=== PATIENT | male | born 1970 | race Caucasian/White ===

== ENCOUNTER → 2017-08-28 | Outpatient (CLI) | payer OTHER ==
--- NOTE | 2017-08-28 23:39 | MR ---
EXAMINATION TYPE: MR knee RT wo con DATE OF EXAM: 08/28/2017 COMPARISON: NONE HISTORY: Rt knee pain/injury 2 years ago, eval for ACL/meniscus tear TECHNIQUE: Multiplanar, multisequence imaging of the right knee is performed without IV contrast. FINDINGS: There is some metal artifact related to anterior cruciate ligament reconstructive surgery. There is l inear mixed signal defect in the proximal tibia and distal femur. There is a very thin anterior cruci ate ligament. There is at least a partial tear of this ligament. The posterior cruciate ligament appe ars intact. There is mild knee joint effusion. There is thinning and increased signal in the anterior horn of the lateral meniscus. There is increased signal within the posterior horn lateral meniscus. There is increased signal in the posterior horn medial meniscus that extends to the inferior surface. There is subchondral increased signal in the medial tibial condyle. There is spurring of the anterio r distal femur. The collateral ligaments appear intact. IMPRESSION: Knee joint effusion. Osteoarthritic changes with subchondral edema and cystic change in the medial ti bial condyle. There is at least a partial tear of the anterior cruciate ligament with previous recons tructive surgery. Multiple tears of the menisci as described above. This involves the inferior aspect medial meniscus, anterior and posterior horns of the lateral meniscus. No fracture seen.
== END | disposition home or self-care (01) ==
LOC: RADMRIMAIN 18:41
PROVIDERS: ATTEND Orthopaedic Surgery
DX: S83.511A Sprain of anterior cruciate ligament of right knee, initial encounter (principal); M17.11 Unilateral primary osteoarthritis, right knee; S83.281A Other tear of lateral meniscus, current injury, right knee, initial encounter; S83.241A Other tear of medial meniscus, current injury, right knee, initial encounter

== ENCOUNTER 2022-02-16 22:31 | Emergency (ER) | payer OTHER ==
[2022-02-16 22:35] VITALS: BP 147/86; PULSE 89; RESP 18; TEMP 98.3
[2022-02-16] MEDS ORDERED: KETOROLAC 15 MG/ML 1 ML VIAL IM STA (22:54)
--- NOTE | 2022-02-16 22:55 | XR ---
EXAMINATION TYPE: XR shoulder complete RT DATE OF EXAM: 02/16/2022 COMPARISON: NONE HISTORY: Shoulder pain TECHNIQUE: Review FINDINGS: There is no fracture nor dislocation. Glenohumeral joint is intact. No pathologic calcifica tion. IMPRESSION: Negative right shoulder exam. No fracture
--- NOTE | 2022-02-16 23:08 | ED ---
Upper Extremity HPI - General Chief Complaint: Extremity Injury, Upper Stated Complaint: Right shoulder pain,Fall Time Seen by Provider: 02/16/22 22:37 Source: patient Mode of arrival: ambulatory Limitations: no limitations - History of Present Illness Initial Comments: Patient is a 52-year-old male who presents to the emergency department with a chief complaint of right shoulder pain. Patient states he tripped over his dog and pushed his right arm against the wall to stop himself from falling which caused right shoulder pain that radiates down the upper arm. Patient heard a pop which he thinks came from his shoulder. Denies numbness and tingling. Took his 's Flexeril for pain just prior to arrival. - Related Data Previous Rx's Medication Instructions Recorded Cyclobenzaprine [Flexeril] 10 mg PO HS PRN #7 tab 02/16/22 Ibuprofen [Motrin] 800 mg PO Q6HR PRN #30 tab 02/16/22 Allergies Allergy/AdvReac Type Severity Reaction Status Date / Time No Known Allergies Allergy Verified 02/16/22 22:34 Review of Systems ROS Statement: Those systems with pertinent positive or pertinent negative responses have been documented in the HPI. ROS Other: All systems not noted in ROS Statement are negative. Past Medical History Past Medical History: Diabetes Mellitus, Hyperlipidemia, Hypertension Additional Past Medical History / Comment(s): chronic left knee pain History of Any Multi-Drug Resistant Organisms: None Reported Past Surgical History: Joint Replacement Additional Past Surgical History / Comment(s): left knee Past Psychological History: No Psychological Hx Reported Smoking Status: Current every day smoker Past Alcohol Use History: None Reported Past Drug Use History: None Reported General Exam Limitations: no limitations General appearance: alert, in no apparent distress Eye exam: Present: normal appearance, PERRL, EOMI. Absent: scleral icterus, conjunctival injection, periorbital swelling Respiratory exam: Present: normal lung sounds bilaterally. Absent: respiratory distress, wheezes, rales, rhonchi, stridor Cardiovascular Exam: Present: regular rate, normal rhythm, normal heart sounds. Absent: systolic murmur, diastolic murmur, rubs, gallop, clicks Right Shoulder Exam: Present: normal inspection, tenderness (at AC joint ). Absent: full ROM (flexion limited due to pain ), swelling, abrasion, laceration, ecchymosis, deformity, crepitus, dislocation Upper Arm exam: Present: normal inspection, tenderness (Proximal biceps tendon region without swelling, ecchymosis, or change in contour). Absent: swelling Elbow exam: Present: normal inspection, full ROM. Absent: tenderness, swelling, abrasion Vascular: Present: normal capillary refill Back exam: Present: normal inspection, full ROM. Absent: tenderness Neurological exam: Present: alert, oriented X3, CN II-XII intact Psychiatric exam: Present: normal affect, normal mood Course Vital Signs 02/16/22 22:32 Temperature 98.3 F Pulse Rate 89 Respiratory 18 Rate Blood Pressure 147/86 O2 Sat by Pulse 95 Oximetry Medical Decision Making - Medical Decision Making This is a 52-year-old male presenting with right shoulder injury. There is tenderness at the right AC joint without obvious deformity. There is pain in the proximal biceps tendon region without swelling, ecchymosis, or change in contour. Flexion and abduction of the right shoulder is limited due to pain. Neurovascularly intact. Right shoulder x-ray is negative for acute process. Based on physical exam there is suspicion for biceps tendon injury. Patient placed in sling. Given Toradol with some relief. He will be referred to cardiology clinical nurse specialist for further evaluation and management. Will send him home with Motrin 800. Dr. Jiang is my attending. Disposition Clinical Impression: Right shoulder pain, Right shoulder injury Disposition: HOME SELF-CARE Condition: Good Instructions (If sedation given, give patient instructions): Tendon Rupture (ED), Shoulder Pain (ED) Additional Instructions: Please take medication as directed. Do not drink alcohol or operate machinery while taking Flexeril as it can make you sleepu. Apply ice 4 times a day, 20 minutes each session, especially for the next 48 hours. Follow-up with cardiology clinical nurse specialist in 1-2 days. Keep sling on his orthopedic evaluation. Return to the emergency department experience new, concerning, or worsening symptoms. Prescriptions: Cyclobenzaprine [Flexeril] 10 mg PO HS PRN #7 tab PRN Reason: Muscle Spasm Ibuprofen [Motrin] 800 mg PO Q6HR PRN #30 tab PRN Reason: Pain Is patient prescribed a controlled substance at d/c from ED?: No Referrals: [facility] [Primary Care Provider] - 1-2 days Cornelius Colorado DO [Doctor of Osteopathic Medicine] - 1-2 days Time of Disposition: 23:09
== END 2022-02-17 00:06 | disposition home or self-care (01) ==
LOC: EC 22:31
DX: S49.91XA Unspecified injury of right shoulder and upper arm, initial encounter (principal); E11.9 Type 2 diabetes mellitus without complications; E78.5 Hyperlipidemia, unspecified; I10 Essential (primary) hypertension; F17.200 Nicotine dependence, unspecified, uncomplicated; Z79.899 Other long term (current) drug therapy; W01.0XXA Fall on same level from slipping, tripping and stumbling without subsequent striking against object, initial encounter
CPT/HCPCS: 73030; 99284; 96372; J1885

== ENCOUNTER 2022-05-05 07:41 | Day surgery (SDC) | payer OTHER ==
[2022-05-02 10:47] VITALS: BMI 33.9
[~2022-05-05 07:41] MED LIST: Pre Op ABX Message 1 EACH MISC MISCELLANE ONE
[2022-05-05] MEDS ORDERED: HYDROmorphone 0.5 MG/0.5 ML SYRINGE IVP PRN (08:19)
[2022-05-05] MEDS ORDERED: ONDANSETRON 4 MG/2 ML VIAL IVP ONE (08:19)
[2022-05-05] MEDS ORDERED: LACTATED RINGERS 1,000 ML IV SCH (08:19)
[2022-05-05] MEDS ORDERED: LIDOCAINE 1% (10MG/ML) FOR IV START INTRADERMA PRN (08:19)
[2022-05-05 08:39] LABS: Glucose,Whole Blood 191 mg/dL (70-110)
[2022-05-05] MEDS ORDERED: DEXAMETHASONE SOD PHOSPHATE 4 MG/ML 1 ML VIAL IVP ONE (08:41)
[2022-05-05 08:47] LABS: Basophils # (A) 0.1 k/uL (0-0.2); Basophils % (A) 1 %; Eosinophils # (A) 0.2 k/uL (0-0.7); Eosinophils % (A) 3 %; HCT 50.5 % (39.0-53.0); HGB 17.2 gm/dL (13.0-17.5); Lymphocytes # (A) 2.4 k/uL (1.0-4.8); Lymphocytes % (A) 33 %; MCH 29.8 pg (25.0-35.0); MCV 87.7 fL (80.0-100.0); Mean Platelet Volume 7.2; Monocytes # (A) 0.4 k/uL (0-1.0); Monocytes % (A) 6 %; Neutrophils # (A) 3.9 k/uL (1.3-7.7); Neutrophils % (A) 54 %; Platelet Count 174 k/uL (150-450); RBC 5.76 m/uL (4.30-5.90); WBC 7.3 k/uL (3.8-10.6)
[2022-05-05 08:57] LABS: ALT 39 U/L (4-49); AST 25 U/L (17-59); African American GFR (CKD) >90 (>60 ml/min/1.73 sqM); Albumin 4.9 g/dL (3.5-5.0); Alkaline Phosphatase 87 U/L (38-126); Anion Gap 8 mmol/L; Blood Urea Nitrogen 15 mg/dL (9-20); Calcium 9.4 mg/dL (8.4-10.2); Carbon Dioxide 26 mmol/L (22-30); Chloride 106 mmol/L (98-107); Glucose 189 mg/dL (74-99); Non-African American GFR(CKD) >90 (>60 ml/min/1.73 sqM); Potassium 4.4 mmol/L (3.5-5.1); Sodium 140 mmol/L (137-145); Total Bilirubin 0.5 mg/dL (0.2-1.3); Total Protein 7.6 g/dL (6.3-8.2)
[2022-05-05] MEDS ORDERED: MIDAZOLAM 2 MG/2 ML VIAL IVP ONE (09:01)
[2022-05-05] MEDS ORDERED: ROPIVACAINE 5 MG/ML 30 ML VIAL ONE (09:28)
[2022-05-05] MEDS ORDERED: GLYCOPYRROLATE 0.2 MG/ML 2 ML VIAL ONE (09:28)
[2022-05-05] MEDS ORDERED: DEXAMETHASONE SOD PHOSPHATE 4 MG/ML 1 ML VIAL ONE (09:28)
[2022-05-05] MEDS ORDERED: fentaNYL (PF) 50 MCG/ML 2 ML AMP ONE (09:28)
[2022-05-05] MEDS ORDERED: SUCCINYLCHOLINE CHLORIDE 200 MG/10 ML VIAL IV ONE (09:28)
[2022-05-05] MEDS ORDERED: LIDOCAINE 2% INJ 20 MG/ML (2 ML VIAL) ONE (09:28)
[2022-05-05] MEDS ORDERED: NEOSTIGMINE 1 MG/ML 10 ML VIAL ONE (09:28)
[2022-05-05] MEDS ORDERED: ROCURONIUM 10 MG/ML (5 ML VIAL) IV ONE (09:28)
[2022-05-05] MEDS ORDERED: PHENYLEPHRINE-0.9% NACL SYG 1,000 MCG/10 ML SYRINGE ONE (09:28)
[2022-05-05] MEDS ORDERED: PROPOFOL 10 MG/ML 20 ML VIAL IV ONE (09:28)
--- NOTE | 2022-05-05 10:28 | P.ANPRN ---
Procedure Note - Anesthesia - Nerve Block Performed Right Interscalene Single Time Out Performed: Yes Date of Procedure: 05/05/22 Procedure Start Time: : Procedure Stop Time: : Location of Patient: PreOp Indication: Acute Post-Operative Pain, Requested by Surgeon Sedation Type: Sedate with meaningful contact maintained Preparation: Sterile Prep Position: Supine Needle Types: Pajunk Needle Gauge: 21 Ultrasound used to visualize needle placement: Yes Ultrasound used to observe medication spread: Yes Blood Aspirated: No Pain Paresthesia on Injection Noted: No Resistance on Injection: Normal Image Stored and Saved: Yes Events: Uneventful and Well Tolerated (Ropivacaine 0.5% 20 mL plus dexamethasone 4 mg)
[2022-05-05 11:25] VITALS: TEMP 98.9
[2022-05-05] MEDS ORDERED: LACTATED RINGERS 1,000 ML IV ONE (12:11)
[2022-05-05 13:01] VITALS: BP 122/82; PULSE 91; RESP 16
--- NOTE | 2022-05-05 14:07 | OP ---
OPERATIVE REPORT FIELD CLINICAL ENGINEER: Fareed Lopez PA-C PREOPERATIVE DIAGNOSES: 1. Right shoulder full-thickness rotator cuff tear. 2. Right shoulder superior labral tear. 3. Right shoulder bicipital tenosynovitis. 4. Right shoulder subacromial impingement. POSTOPERATIVE DIAGNOSES: 1. Right shoulder full-thickness rotator cuff tear. 2. Right shoulder superior labral tear. 3. Right shoulder bicipital tenosynovitis. 4. Right shoulder subacromial impingement. PROCEDURES PERFORMED: 1. Right shoulder arthroscopic rotator cuff repair 3 cm x 4 cm tear of the supraspinatus and infraspinatus. 2. Right shoulder arthroscopic acromioplasty. 3. Right shoulder arthroscopic biceps tenotomy. 4. Right shoulder arthroscopic anterior, superior, posterolabral debridement. ANESTHESIA: General endotracheal. ESTIMATED BLOOD LOSS: Minimal. TOURNIQUET: None. DRAINS: None. COMPLICATIONS: None apparent. DISPOSITION: Postanesthesia care unit. Examination under anesthesia of the right shoulder; elevation to 106 degrees, external rotation to the side 45 degrees, external rotation at 90 degrees of abduction was 90 degrees, internal rotation at 90 degrees of abduction was 60 degrees, sulcus less than 1 cm, anterior translation glenoid face, posterior translation glenoid face. ARTHROSCOPIC FINDINGS OF THE RIGHT SHOULDER: 1. Superior labrum degenerative macerated type 2 superolabral tear, tearing both anterior and posterior to biceps anchor. The biceps anchor was not intact. There is also partial tearing of the intra-articular portion of long head of the biceps tendon. 2. Anterior inferior labrum fraying but normal glenolabral attachment. 3. Posterior labrum: Tearing of the posterior labrum from the 9 o'clock position to 12 o'clock position on the glenoid face. 4. Humeral head cartilage central area grade 2 change on the humeral head. 5. Rotator cuff massive full-thickness tear of the supraspinatus and infraspinatus measuring 3 cm x 4 cm tear with retraction just lateral to the glenoid. 6. Glenoid face cartilage normal. 7. Subacromial space: Significant fraying of the undersurface of the coracoacromial ligament with a type 2 to 3 anterolateral acromial spur. INDICATIONS: Mynor is a very pleasant 52-year-old male with right shoulder pain. He has noted weakness as well as significant pain in the shoulder. It has been through a fairly significant course of nonoperative treatment up to this point. Further physical examination, MRI revealed a large tear of the rotator cuff as well as tearing of the superior labrum and bicipital tenosynovitis. At this point in time, he feels that he has failed nonoperative treatment and would like to proceed with operative intervention. Long discussion held with the patient regarding treatment options. The risks of procedure were all discussed with him in detail. These risks included, but were not limited to risk of infection, nerve damage, bleeding, pain, and a small risk of deep vein thrombosis which could lead to fatal pulmonary embolism. Further risks include lack of healing of rotator cuff and the possibility for biceps contour change with a biceps tenotomy. The patient understands the operation as well as the fact that there was no guarantee of improvement of his symptoms. An appropriate informed consent was obtained. DESCRIPTION OF THE PROCEDURE: The patient was identified in the preoperative holding area. Surgical site was marked by both the patient and myself. Given 2 grams of Ancef IV for prophylactic purposes. He was then transported to the operative suite. He was placed supine on the operating room table. The patient was then intubated endotracheally and received general anesthesia throughout the operative procedure. Examination under anesthesia was then performed and the findings were noted as above. The patient was then placed into the beach chair position well-padded in preparation for surgery. Great care was taken to ensure that the cervical spine was in neutral alignment well-padded and maintained that way throughout the operative procedure. Great care was also taken to ensure that his legs were appropriately padded as well. The patient's right upper extremity was then prepped and draped in the usual sterile fashion. Standard surgical pause was undertaken to ensure that appropriate preoperative antibiotics were given that we were operating the correct site. All staff were in agreement and we proceeded. The acromion as well as the AC joint and coracoid were marked with a surgical pen. The skin of the anticipated portal sites was also marked with a surgical pen. The skin of the anticipated portal sites was then injected with 0.25% Marcaine with epinephrine. I then proceeded to make a posterior portal. A 30-degree arthroscope was introduced into the glenohumeral joint through this portal. The arthroscopic pump pressure was set at 40 mmHg and maintained at that level throughout the entire case. Next utilizing an 18-gauge spinal needle to topically localize the placement, the anterior superior portal was made. This was made just underneath the biceps tendon and high in the rotator interval. A small blue 5.75 mm cannula was then placed and the outflow was then done through this cannula. The diagnostic arthroscopy of the shoulder was then performed. The findings were as noted above. Great care was taken to probe superior labral complex as well as the biceps anchor. The biceps anchor was not firmly attached. Significant tearing of the superior labrum. This extended both anterior and posterior to the biceps anchor. The intra-articular portion of long head of the biceps tendon did have partial tearing as well. At this point, I proceeded with a biceps tenotomy and the biceps was tenotomized near its attachment on the supraglenoid tubercle. This was done utilizing ArthroCare wand. I then proceeded to debride the torn loose tissue of the superior labrum. It was debrided anteriorly, superiorly and posteriorly back to stable tissue. I then inspected the rotator cuff from intra-articular. He did have a massive full- thickness tear of the supraspinatus and the infraspinatus. At this point in time, no further work was deemed necessary from intra-articular. The arthroscope was removed from the glenohumeral joint, and utilizing the same posterior skin incision, it was placed in the subacromial space. Next utilizing an 18-gauge spinal needle to topically localize the placement, a lateral portal was made under direct visualization. Subacromial bursectomy was then performed utilizing synovial shaver as well as the ArthroCare wand. There was significant fraying of the undersurface of the coracoacromial ligament. This was then taken down utilizing the ArthroCare wand. This exposed underlying type 2 to 3 anterolateral acromial spur. I then proceeded with acromioplasty. Utilizing synovial shaver in a tex type fashion, acromioplasty was completed. When the acromioplasty was completed, the arthroscope was placed in the lateral portal. The shaver was placed posteriorly to ensure that it was adequate and coplanar with posterior aspect of the acromion. I then proceeded to repair the rotator cuff tear. He did have a large massive full- thickness tear of the supraspinatus and the infraspinatus. This measured approximately 4 cm x 3 cm. The fourth portal was then made off the anterolateral angle of the acromion. Again, this was done after first localizing the placement with an 18-gauge spinal needle. The footprint of the greater tuberosity was then debrided of all devitalized tissue utilizing synovial shaver as well as the ArthroCare wand. I then performed a light decortication of the greater tuberosity utilizing synovial shaver in a tex-type fashion. This provided a nice bleeding surface to repair. I then placed small microfracture holes along the articular margin to again enhance healing of the repair. I then utilized ArthroCare wand to lyse the adhesions between the superior surface rotator cuff, the undersurface of the acromion. This allowed for mobilization of the rotator cuff back to the tuberosity. I then placed an Arthrex FiberTape suture loaded onto an Arthrex 4.75 mm Bio SwiveLock anchor in the posteromedial aspect of the footprint. He had excellent bone quality. The FiberTape sutures were then placed through good rotator cuff tissue and utilized Scorpion suture passer. These posterior sutures were shuttled out through the anterior portal. I then placed a second anchor loaded with a FiberTape suture in the anterior medial portion of the footprint. Again, he had excellent bone quality. This anchor had excellent purchase in bone. These FiberTape sutures were shuttled through the anterior aspect of the rotator cuff tear. Good quality tendon. These sutures were shuttled out through the anterior portal. I then proceeded with placement of posterolateral anchor. The most posterior FiberTape limb of the posterior anchor and the most posterior FiberTape limb of the anterior anchor were then brought out through the lateral portal. The awl was placed on the most posterolateral aspect of the footprint. Again, an Arthrex 4.75 mm BioComposite anchor was chosen. The FiberTape was shuttled through the eyelet of the anchor. Tension appropriate in the anchor was then placed with excellent purchase in bone. These FiberTape sutures were cut flush with the anchor. I then took the remaining posterior limb and remaining anterior limb FiberTape suture out through the anterolateral portal. The awl was placed in the most anterolateral aspect of the footprint. This was just posterior to the bicipital groove. Again, he had excellent bone quality. The FiberTape sutures were shuttled through an Arthrex 4.75 mm Bio SwiveLock BioComposite anchor. The sutures were tensioned appropriately. The anchor was placed with an excellent purchase in bone. These FiberTape sutures were cut flush with the anchor. At this point, we evaluated the repair through the lateral portal. The rotator cuff had been repaired down very nicely to the most lateral aspect of the footprint utilizing a double row equivalent type repair. He had good rotator cuff quality tendon. There was not any undue tension onto the tendon. At this point, we proceeded with closure. The subacromial space was then thoroughly irrigated and drained with an outflow cannula. The arthroscopic equipment was removed from the shoulder. The arthroscopic portals were then closed with 3-0 nylon interrupted suture. Sterile compressive dressing was applied. The patient's right upper extremity was placed into a sling shot type rotator cuff immobilizer. All sponge and needle counts deemed correct prior to closure. The patient tolerated the procedure without apparent complication. He is transferred to the recovery room in stable condition. MMODL / IJN: [id number] /
== END 2022-05-05 13:38 | disposition home or self-care (01) ==
LOC: OR 07:41
PROVIDERS: ATTEND Orthopaedic Surgery Sports Medicine
DX: M75.121 Complete rotator cuff tear or rupture of right shoulder, not specified as traumatic (principal); G89.18 Other acute postprocedural pain; M75.41 Impingement syndrome of right shoulder; M75.21 Bicipital tendinitis, right shoulder; S43.431A Superior glenoid labrum lesion of right shoulder, initial encounter; E11.9 Type 2 diabetes mellitus without complications; I10 Essential (primary) hypertension; E78.00 Pure hypercholesterolemia, unspecified; F17.210 Nicotine dependence, cigarettes, uncomplicated; G47.33 Obstructive sleep apnea (adult) (pediatric); Z79.84 Long term (current) use of oral hypoglycemic drugs; Z79.899 Other long term (current) drug therapy; X58.XXXA Exposure to other specified factors, initial encounter
CPT/HCPCS: 29827; 29826; 64415; 76942; 80053; 85025; C1713; J2250; J0330; J1100; J2710; J0690; J2405; J3010; J2795; J2370; J2704; J2001

== ENCOUNTER → 2022-12-14 | Outpatient (CLI) | payer OTHER | END | disposition home or self-care (01) | LOC: LABPAT 10:18 | PROVIDERS: ATTEND Orthopaedic Surgery | DX: Z01.812 Encounter for preprocedural laboratory examination (principal); Z22.322 Carrier or suspected carrier of Methicillin resistant Staphylococcus aureus; M17.11 Unilateral primary osteoarthritis, right knee | CPT/HCPCS: 87070 ==

== ENCOUNTER 2023-02-24 05:39 | Day surgery (SDC) | payer OTHER ==
--- NOTE | 2023-02-23 08:39 | P.HPOR ---
History of Present Illness H&P Date: 02/23/23 Chief Complaint: Right knee pain The patient is a 53-year-old retired male presents with progressive right knee pain for the past several years worsening recently. He's having pain with any weightbearing activities. He's having night symptoms. He's tried injections and medications without much relief. He has a history of ACL reconstruction with multiple arthroscopies. He notes he's limping and has a difficult time because of pain related to his osteoarthrosis. Review of Systems Negative except as in HPI Past Medical History Past Medical History: Diabetes Mellitus, GERD/Reflux, Hyperlipidemia, Hy pertension, Osteoarthritis (OA), Sleep Apnea/CPAP/BIPAP Additional Past Medical History / Comment(s): chronic left knee pain, uses CPAP History of Any Multi-Drug Resistant Organisms: None Reported Past Surgical History: Joint Replacement Additional Past Surgical History / Comment(s): left knee partial replacement. right knee meniscus repair/knee ACL reconstruction Past Anesthesia/Blood Transfusion Reactions: No Reported Reaction Smoking Status: Current every day smoker - Past Family History Mother Family Medical History: No Reported History Medications and Allergies Home Medications Medication Instructions Recorded Confirmed Type Atorvastatin Calcium [Lipitor] 80 mg PO HS 05/02/22 02/22/23 History Empagliflozin [Jardiance] 12.5 mg PO QAM 05/02/22 02/22/23 History Omeprazole 20 mg PO DAILY 05/02/22 02/22/23 History lisinopriL [Prinivil] 20 mg PO HS 05/02/22 02/22/23 History metFORMIN HCL 1,000 mg PO BID 05/02/22 02/22/23 History Insulin Glargine,Hum.rec.anlog 10 units SQ HS 02/22/23 02/22/23 History [Lantus Solostar Pen] Magnesium 400 mg PO DAILY 02/22/23 02/22/23 History Metoprolol Tartrate [Lopressor] 12.5 mg PO BID 02/22/23 02/22/23 History glipiZIDE [Glucotrol] 5 mg PO AC-BID 02/22/23 02/22/23 History Allergies Allergy/AdvReac Type Severity Reaction Status Date / Time No Known Allergies Allergy Verified 02/22/23 10:40 Physical Examination - Knee right Appearance: effusion Effusion grade: grade 1 Tenderness with palpation: medial, lateral Pain: throughout ROM Gait: limping ROM: extension: -10 degrees ROM: flexion: 90 degrees Crepitus with motion: Yes Strength: extension: 5/5 Strength: flexion: 5/5 ACL tests: Yanni's: grade 2, pivot shift: grade 2 Meniscal tests: medial meniscal tests: positive, lateral meniscal tests: positive, medial joint line pain: positive, lateral joint line pain: positive Results The patient is a well-developed well-nourished male approximately 6 foot tall, 238 pounds of endomorphic habitus. HEENT exam is nonfocal, neck is supple. He has painless passive motion of the right hip. Straight leg raise is negative. On examination of the right knee, he is tender about the medial and lateral joint line. He has genu valgum alignment. Collaterals are stable, Yanni is 2+, Jonny's is equivocal. His distal neurovascular exam appears intact in the right lower extremity. - Diagnostic results Knee x-ray: image reviewed (Reviews of the right knee obtaining office show severe lateral and patellofemoral compartment osteoarthrosis with [id number] changes and subchondral sclerosis. Tibial and femoral tunnels and hardware are noted.) Assessment and Plan Assessment: Right knee superior lateral and patellofemoral compartment osteoarthrosis History of right knee ACL reconstruction [id number] diabetes Plan: I talked to the patient regarding his condition along with treatment options. At this point he remains quite symptomatically despite previous conservative measures. After thorough discussion he opted to proceed with surgery. We'll proceed with right total knee arthroplasty with possible hardware removal. Risks and benefits were discussed at length in layman's terms. We will institute DVT prophylaxis postoperatively.
[~2023-02-24 05:39] MED LIST changes: +ACETAMINOPHEN TAB 500 MG TAB PO PRN; +MELOXICAM 7.5 MG TAB PO PRN; -Pre Op ABX Message 1 EACH MISC MISCELLANE ONE; +TRANEXAMIC 1,000 MG/100ML-NACL 1,000 MG in SALINE 1 100ML.BAG IVPB PRN
[2023-02-24] MEDS ORDERED: ONDANSETRON 4 MG/2 ML VIAL IVP ONE (05:58)
[2023-02-24] MEDS ORDERED: SCOPOLAMINE 1 MG/72 HR PATCH TRANSDERM ONE (05:58)
[2023-02-24] MEDS ORDERED: DEXAMETHASONE SOD PHOSPHATE 4 MG/ML 1 ML VIAL IV ONE (05:58)
[2023-02-24 06:45] LABS: Glucose,Whole Blood 143 mg/dL (70-110)
[2023-02-24] MEDS: LACTATED RINGERS 1,000 ML IV SCH ×2 (06:50→11:17)
[2023-02-24] MEDS ORDERED: HYDROmorphone 0.5 MG/0.5 ML SYRINGE IVP PRN ×2 (07:00→09:50)
[2023-02-24] MEDS ORDERED: MIDAZOLAM 2 MG/2 ML VIAL IV PRN (07:00)
[2023-02-24 07:07] LABS: HCT 48.5 % (39.0-53.0); HGB 16.2 gm/dL (13.0-17.5); MCH 30.1 pg (25.0-35.0); MCHC 33.4 g/dL (31.0-37.0); MCV 90.2 fL (80.0-100.0); Mean Platelet Volume 7.1; Platelet Count 172 k/uL (150-450); RBC 5.38 m/uL (4.30-5.90); RDW 13.8 % (11.5-15.5); WBC 8.7 k/uL (3.8-10.6)
[2023-02-24] MEDS ORDERED: MIDAZOLAM 2 MG/2 ML VIAL IVP ONE (07:16)
[2023-02-24 07:17] LABS: ALT 39 U/L (4-49); AST 33 U/L (17-59); African American GFR (CKD) >90 (>60 ml/min/1.73 sqM); Albumin 4.3 g/dL (3.5-5.0); Alkaline Phosphatase 79 U/L (38-126); Anion Gap 11 mmol/L; Blood Urea Nitrogen 16 mg/dL (9-20); Calcium 9.5 mg/dL (8.4-10.2); Carbon Dioxide 26 mmol/L (22-30); Chloride 102 mmol/L (98-107); Glucose 147 mg/dL (74-99); Non-African American GFR(CKD) >90 (>60 ml/min/1.73 sqM); Potassium 4.1 mmol/L (3.5-5.1); Sodium 139 mmol/L (137-145); Total Bilirubin 0.7 mg/dL (0.2-1.3); Total Protein 6.8 g/dL (6.3-8.2)
[2023-02-24] MEDS ORDERED: DILTIAZEM 5 MG/ML 10 ML VIAL ONE (07:39)
[2023-02-24] MEDS ORDERED: fentaNYL (PF) 50 MCG/ML 2 ML AMP ONE (07:39)
[2023-02-24] MEDS ORDERED: ROPIVACAINE 5 MG/ML 30 ML VIAL ONE (07:39)
[2023-02-24] MEDS ORDERED: SODIUM CHLORIDE 0.9% (PF) 10 ML VIAL ONE (07:39)
[2023-02-24] MEDS ORDERED: MIDAZOLAM 2 MG/2 ML VIAL ONE (07:39)
[2023-02-24] MEDS ORDERED: TRANEXAMIC 1,000 MG/100ML-NACL PREMIX BAG ONE (07:39)
[2023-02-24] MEDS ORDERED: GLYCOPYRROLATE 0.2 MG/ML 2 ML VIAL ONE (07:39)
[2023-02-24] MEDS ORDERED: PROPOFOL 10 MG/ML 20 ML VIAL IV ONE (07:39)
[2023-02-24] MEDS ORDERED: HYDROmorphone (PF) 1 MG/ML ONE (07:39)
[2023-02-24] MEDS ORDERED: LACTATED RINGERS 1,000 ML IV ONE (08:34)
[2023-02-24] MEDS ORDERED: ceFAZolin 3,000 MG in SODIUM CHLORIDE 0.9% IRRIGATIO 3,000 ML IRRIGATION ONE (08:56)
[2023-02-24] MEDS ORDERED: HYDROcodone/APAP 5-325MG 1 EACH TAB PO PRN (09:50)
[2023-02-24] MEDS ORDERED: NALOXONE 0.4 MG/ML 1 ML VIAL IV PRN (09:50)
[2023-02-24] MEDS ORDERED: hydrOXYzine pamoate 25 MG CAP PO PRN (09:50)
[2023-02-24] MEDS ORDERED: MAGNESIUM HYDROXIDE 2,400 MG/30 ML CUP PO PRN (09:50)
--- NOTE | 2023-02-24 10:18 | P.OP ---
Date of Procedure: 02/24/23 Preoperative Diagnosis: Right knee severe tricompartmental osteoarthrosis/retained hardware right proximal tibia Postoperative Diagnosis: Same Procedure(s) Performed: Right total knee arthroplastycementedposterior stabilized/removal screw and washer right proximal tibia Implants: Depuy Attune size 8 cemented femoral component, size 7 cemented tibial component with a 14 x 50 mm stem extension, 9 mm articular surface, 38 mm cemented patellar component. This is a posterior stabilized implant. Anesthesia: regional, spinal Surgeon: Tr Devries Machine Turner #1: Garrett Sanders Estimated Blood Loss (ml): 50 Pathology: none sent Condition: stable Disposition: PACU Indications for Procedure: The patient is a 53-year-old male who presents with progressive right knee pain secondary osteoarthrosis despite conservative measures. A discussion of the risks and benefits of operative intervention versus continued conservative measures was made with the patient. He opted to proceed with surgery. Operative risks to include infection, neurovascular injury, development of blood clots, fracture, possible component loosening/failure need for subsequent procedures was discussed. Informed consent was obtained. Operative Findings: As below Description of Procedure: The patient was brought to the operating room, and after induction of spinal anesthesia the right lower extremity was prepped and draped in a normal fashion. The tourniquet was inflated to 270 mm marker. A longitudinal incision extending 3 finger breaths above the superior pole of patella extending to the medial aspect the tibial tubercle was then made. The skin and subcutaneous tissues were divided sharply. Electrocautery was used for hemostasis. A medial parapatellar arthrotomy was performed. The medial soft tissues to include the superficial and deep portions of the medial collateral ligament were elevated subperiosteally. The patella was everted. A portion of the retropatellar fat pad was excised sharply. The anterior cruciate ligament was sacrificed. Blunt retractors were placed. A starting hole was made in the distal femur 1 cm anterior to the posterior cruciate ligament origin. An intramedullary femoral guide was then inserted planning on 5 valgus distal cut with 9 mm distal resection. The cutting block was pinned in place. The distal cut was then made. The posterior referencing sizing guide was utilized. I felt size 8 was most appropriate. 3 of external rotation was built into the system and verified off the trans-epicondylar axis and the posterior condyles. The cutting block was pinned in place. The anterior, posterior, and chamfer cuts then made. Bone fragments were removed. The intercondylar guide was placed and the notch cut was made with a sagittal saw. The bone block was removed in one fragment. The trial component was then placed. There is good anterior to posterior and medial to lateral fit. The distal peg holes were drilled. The trial component was removed. Attention was then paid towards preparing the proximal tibia. I did remove the proximal tibial screw and washer as the hardware was blocking the proposed implant placement. An extra medullary guide was utilized in line with the tibial shaft and second metatarsal distally. I planned on 6 mm resection from the medial compartment. The cutting block was pinned in place. The proximal tibial cut was then made. The bone was removed in one fragment. The remnants of the medial and lateral menisci were excised at the capsular junction with electrocautery. The tibia sized most appropriately at size 7. The trial femoral and tibial components were placed along with a 9 mm articular surface. I was able to obtain full flexion and extension with internal and external rota tion. After several flexion and extension cycles, the tibial rotation was marked with electrocautery line with the medial one third of the tibial tubercle. Attention was then paid towards preparing the patella. A patella reamer was utilized taking stem to 14 mm of bone stock. A good flush cut was made. The patella sized most appropriately 38 mm. The peg holes were drilled. The trial components placed. I had good patellofemoral tracking with no hands technique. The trial components were then removed. The tibia was prepared in the appropriate rotation with appropriate drill and keel punch. I planned on a 14 x 50 mm tibial stem extension. The posterior osteophytes were removed with a curved osteotome. The flexion and extension gaps were checked and felt to be symmetric at 9 mm. A trial components were then removed. The bony surfaces were prepared with pulsatile lavage and dried. The tibial component was then cemented place was fully seated. Excess cement was removed. The femoral component cemented place and was fully seated. Excess cement was removed. The trial 9 mm articular surface was placed and the knee was put in full extension. The patella component was cemented place. After the cement had sufficiently hardened, the knee was again taken through a range of motion. Again I was able to obtain full flexion and extension with varus and valgus stress. The trial 9 mm articular surface was removed and the final one inserted. This was fully seated. Care was taken to avoid any soft tissue interposition. Pulsatile lavage was again utilized. The medial parapatellar arthrotomy was closed with #2 Ethibond suture. The tourniquet was deflated with approximately 83 minutes total tourniquet time. Final hemostasis was obtained with the cautery. There was minimal bleeding therefore a deep drain was not placed. The subcutaneous tissues were reapproximated with interrupted 2-0 Vicryl sutures. The skin was reapproximated with 3-0 subcuticular strata fix suture. Skin tape and adhesive was applied. A sterile dressing was applied. The patient was awoken from sedation and transferred to recovery room in good condition. Blood loss was estimated at 50 mL. No complications were incurred. Sponge and needle counts were correct at the end of the case. Garrett HARMON assisted during the major components of this case to include exposure, bone resection, implantation, and closure.
[2023-02-24] MEDS ORDERED: ROPIVACAINE 1,100 MG, SODIUM CHLORIDE 0.9% 500 ML 330 ML, EMPTY PAIN BALL 1 EACH MISCELLANE PRN ×2 (10:44)
--- NOTE | 2023-02-24 11:16 | XR ---
EXAMINATION TYPE: XR knee limited RT DATE OF EXAM: 02/24/2023 COMPARISON: None HISTORY: Post knee replacement TECHNIQUE: 2 view right knee FINDINGS: Tibial and femoral components have been placed. No acute fracture or dislocation is evident . Postsurgical soft tissue changes are evident. Changes of anterior cruciate ligament repair are evid ent. IMPRESSION: 1. No acute fracture post knee replacement.
--- NOTE | 2023-02-24 13:03 | P.ANPRN ---
Procedure Note - Anesthesia - Nerve Block Performed Right Adductor Canal Infusion Time Out Performed: Yes (0716) Date of Procedure: 02/24/23 Procedure Start Time: :17 Procedure Stop Time: : Location of Patient: PreOp Indication: Acute Post-Operative Pain, Requested by Surgeon Specifically requested for management of pain by : Tr Devries Sedation Type: Sedate with meaningful contact maintained Preparation: Sterile Prep, Sterile Dressing Position: Supine Catheter Depth at Skin (cm): 7 Catheter: Indwelling Needle Types: Pajunk Needle Gauge: 18 Ultrasound used to visualize needle placement: Yes Ultrasound used to observe medication spread: Yes Injectate: 0.5% Ropivacaine (see comment for volume) (15cc + 5cc nacl pf) Blood Aspirated: No Pain Paresthesia on Injection Noted: No Resistance on Injection: Normal Image Stored and Saved: Yes Events: Uneventful and Well Tolerated
--- NOTE | 2023-02-24 13:04 | P.ANPRN ---
Procedure Note - Anesthesia - Nerve Block Performed Right iPack Single Time Out Performed: Yes (0716) Date of Procedure: 02/24/23 Procedure Start Time: Procedure Stop Time: Location of Patient: PreOp Indication: Acute Post-Operative Pain, Requested by Surgeon Specifically requested for management of pain by DrCrissy: Tr Devries Sedation Type: Sedate with meaningful contact maintained Preparation: Sterile Prep Position: Supine Catheter: None Needle Types: Pajunk Needle Gauge: 21 Ultrasound used to visualize needle placement: Yes Ultrasound used to observe medication spread: Yes Injectate: 0.5% Ropivacaine (see comment for volume) (15cc +5cc nacl pf) Blood Aspirated: No Pain Paresthesia on Injection Noted: No Resistance on Injection: Normal Image Stored and Saved: Yes Events: Uneventful and Well Tolerated
[2023-02-24 14:42] LABS: Glucose,Whole Blood 145 mg/dL (70-110)
--- NOTE | 2023-02-24 16:27 | P.CONS ---
History of Present Illness - Reason for Consult Consult date: 02/24/23 - History of Present Illness Patient is a 53-year-old male with history of hypertension, diabetes, dyslipi demia presenting for elective right knee total arthroplasty. [facility] has been consulted for medical management. Currently patient denies any chest pain, shortness of breath, abdominal pain, nausea, vomiting, urinary or bowel complaints. Currently temperature is 97.4, pulse 85, respiratory rate 16, blood pressure 130/69, saturating at 95% on 2 L. Preoperative blood work showed WBC of 8.7, hemoglobin of 16.2, creatinine 0.65, blood sugars have ranged between 143-147. He smokes 1.5 packs of cigarettes per day denies any alcohol or illicit drug use. Pertinent positives and negatives as discussed in HPI, a complete review of systems was performed and all other systems are negative. Patient seen and examined at bedside. Vital signs reviewed General: nontoxic, no distress, appears at stated age Derm: warm, dry, right knee dressing clean, dry, intact Head: atraumatic, normocephalic, symmetric Eyes: EOMI, no lid lag, anicteric sclera, pupils equal round reactive to light ENT: Nose and ears atraumatic Neck: No thyromegaly, supple Mouth: no lip lesion, mucus membranes moist Cardiovascular: S1S2 reg, no murmur, no edema Lungs: clear to auscultation bilateral, no rhonchi, no rales, no wheeze, no accessory muscle use Abdominal: soft, nontender to palpation, no guarding, no appreciable organomegaly Ext: no gross muscle atrophy, muscle strength muscle strength 5 out of 5 in all 4 extremities, no contractures Neuro: CN II-XII grossly intact Psych: Alert, oriented, appropriate affect Assessment/Plan: Insulin-dependent diabetes Hypertension Dyslipidemia GERD Nicotine dependence Status post right knee total arthroplasty -Resume home Lantus 10 units at night -Sliding scale insulin every before meals at bedtime, monitor for hypoglycemia -Hold oral antidiabetic, can be restarted at the time of discharge -Rest of the home medications reviewed and reconciled -Counseled regarding smoking cessation, nicotine patch 21 mg daily ordered -Currently on Xarelto 10 mg daily for DVT prophylaxis -Pain and bowel regimen per orthopedic surgery -CBC and BMP pending for tomorrow Thank you for allowing us to participate in the care of this pleasant patient. Do not hesitate to contact us with questions. Someone can be reached from the [facility] hospitalist group all hours of the day at [phone] or via [employer]. Past Medical History Past Medical History: Diabetes Mellitus, GERD/Reflux, Hyperlipidemia, Hypertension, Osteoarthritis (OA), Sleep Apnea/CPAP/BIPAP Additional Past Medical History / Comment(s): chronic left knee pain, uses CPAP History of Any Multi-Drug Resistant Organisms: None Reported Past Surgical History: Joint Replacement Additional Past Surgical History / Comment(s): left knee partial replacement. right knee meniscus repair/knee ACL reconstruction Past Anesthesia/Blood Transfusion Reactions: No Reported Reaction Smoking Status: Current every day smoker - Past Family History Mother Family Medical History: No Reported History Medications and Allergies Home Medications Medication Instructions Recorded Confirmed Type Atorvastatin Calcium [Lipitor] 80 mg PO HS 05/02/22 02/24/23 History Empagliflozin [Jardiance] 12.5 mg PO QAM 05/02/22 02/24/23 History Omeprazole 20 mg PO DAILY 05/02/22 02/24/23 History lisinopriL [Prinivil] 20 mg PO HS 05/02/22 02/24/23 History metFORMIN HCL 1,000 mg PO BID 05/02/22 02/24/23 History Insulin Glargine,Hum.rec.anlog 10 units SQ HS 02/22/23 02/24/23 History [Lantus Solostar Pen] Magnesium 400 mg PO DAILY 02/22/23 02/24/23 History Metoprolol Tartrate [Lopressor] 12.5 mg PO BID 02/22/23 02/24/23 History glipiZIDE [Glucotrol] 5 mg PO AC-BID 02/22/23 02/24/23 History Allergies Allergy/AdvReac Type Severity Reaction Status Date / Time No Known Allergies Allergy Verified 02/24/23 06:11 Physical Exam Vitals: Vital Signs Temp Pulse Resp BP Pulse Ox 02/24/23 14:20 85 16 130/69 95 02/24/23 13:20 83 16 130/71 96 02/24/23 12:50 83 16 128/73 95 02/24/23 12:20 80 16 124/67 95 02/24/23 11:50 79 16 123/65 97 02/24/23 11:20 76 16 130/70 97 02/24/23 11:05 75 16 135/68 99 02/24/23 10:50 79 16 134/68 98 02/24/23 10:35 73 16 131/64 99 02/24/23 10:20 77 16 136/71 99 02/24/23 10:14 97.4 F L 81 16 129/73 99 02/24/23 07:37 84 16 126/62 96 02/24/23 06:13 97.6 F 76 16 133/76 96 Intake and Output 02/24/23 02/24/23 02/24/23 06:59 14:59 22:59 Intake Total 300 1951.5 Output Total 50 Balance 300 1901.5 Intake: IV 300 1951.5 Output: Estimated Blood Loss 50 Other: Weight 108.7 kg Results CBC & Chem 7: 02/24/23 06:58 02/24/23 06:58 Labs: Abnormal Lab Results - Last 24 Hours (Table) 02/24/23 02/24/23 02/24/23 Range/Units 06:42 06:58 14:41 Creatinine 0.65 L (0.66-1.25) mg/dL Glucose 147 H (74-99) mg/dL POC Glucose (mg/dL) 143 H 145 H (70-110) mg/dL
[2023-02-24] MEDS: HYDROmorphone 1 MG/ML 1 ML SYRINGE IVP PRN ×2 (16:35→21:49)
[2023-02-24] MEDS: NICOTINE 21MG/24HR PATCH TRANSDERM SCH (16:35)
[2023-02-24 16:44] LABS: Glucose,Whole Blood 253 mg/dL (70-110)
[2023-02-24] MEDS: HYDROcodone/APAP 7.5-325MG 1 EACH TAB PO PRN ×2 (18:17→23:44)
[2023-02-24 19:25] LABS: Glucose,Whole Blood 229 mg/dL (70-110)
[2023-02-24] MEDS ORDERED: SENNOSIDES-DOCUSATE SODIUM 1 EACH TAB PO SCH (21:00)
[2023-02-24] MEDS ORDERED: INSULIN DETEMIR (LEVEMIR) 100 UNIT/ML SYR SQ SCH (21:00)
[2023-02-24] MEDS ORDERED: lisinopriL 20 MG TAB PO SCH (21:00)
[2023-02-24] MEDS ORDERED: ATORVASTATIN 80 MG TAB PO SCH (21:00)
[2023-02-24 21:26] VITALS: RESP 18
[2023-02-24] MEDS: METOPROLOL TARTRATE 12.5 MG TAB PO SCH (21:50)
[2023-02-25] MEDS: HYDROmorphone 1 MG/ML 1 ML SYRINGE IVP PRN (02:17)
[2023-02-25 03:17] VITALS: PULSE 89
[2023-02-25 05:45] LABS: Glucose,Whole Blood 153 mg/dL (70-110)
--- NOTE | 2023-02-25 06:36 | P.PN ---
Progress Note - Text Progress Note Date: 02/25/23 patient was seen and evaluated at bedside. Status post postoperative day 1 for Right total knee arthroplasty patient had adductor canal catheter for postop pain control. Patient rated pain at rest 5 out of 10 in severity. Patient describes pain is aching, throbbing type on the sides of the knee and back of the knee. Patient started walking with support. With activity patient pain levels are 8 out of 10 in severity. With the help of oral pain medications pain levels are tolerable. Patient denied any weakness/ numbness in lower extremities. patient denied any fever, pain over the catheter site. Physical exam: Patient vital signs stable Patient is alert awake oriented 3 responding to all questions appropriately Examination of the catheter site showed dressing intact, no leaking fluid around the catheter, no redness, no tenderness over the catheter insertion area. plan: status post postoperative day 1 for right total knee arthroplasty with adductor canal catheter for pain control. Patient was discussed to continue the medication until the pump is completely empty and instructed the patient how to discontinue the catheter.
[2023-02-25] MEDS: HYDROcodone/APAP 7.5-325MG 1 EACH TAB PO PRN (06:47)
[2023-02-25] MEDS ORDERED: PANTOPRAZOLE 40 MG TABLET PO SCH (07:30)
[2023-02-25] MEDS: METOPROLOL TARTRATE 12.5 MG TAB PO SCH (08:10)
[2023-02-25] MEDS: NICOTINE 21MG/24HR PATCH TRANSDERM SCH (08:11)
[2023-02-25 08:17] LABS: Basophils # (A) 0.1 k/uL (0-0.2); Basophils % (A) 1 %; Eosinophils # (A) 0.1 k/uL (0-0.7); Eosinophils % (A) 1 %; HCT 39.9 % (39.0-53.0); HGB 13.6 gm/dL (13.0-17.5); Lymphocytes # (A) 2.4 k/uL (1.0-4.8); Lymphocytes % (A) 25 %; MCV 91.1 fL (80.0-100.0); Mean Platelet Volume 7.8; Monocytes # (A) 0.7 k/uL (0-1.0); Monocytes % (A) 7 %; Neutrophils # (A) 6.2 k/uL (1.3-7.7); Neutrophils % (A) 64 %; Platelet Count 157 k/uL (150-450); RBC 4.38 m/uL (4.30-5.90); RDW 13.8 % (11.5-15.5); WBC 9.6 k/uL (3.8-10.6)
[2023-02-25 08:23] LABS: African American GFR (CKD) >90 (>60 ml/min/1.73 sqM); Anion Gap 9 mmol/L; Blood Urea Nitrogen 14 mg/dL (9-20); Calcium 8.8 mg/dL (8.4-10.2); Carbon Dioxide 26 mmol/L (22-30); Chloride 100 mmol/L (98-107); Glucose 147 mg/dL (74-99); Non-African American GFR(CKD) >90 (>60 ml/min/1.73 sqM); Potassium 3.7 mmol/L (3.5-5.1); Sodium 135 mmol/L (137-145)
[2023-02-25] MEDS ORDERED: RIVAROXABAN 10 MG TAB PO SCH (09:00)
[2023-02-25] MEDS ORDERED: MAGNESIUM OXIDE 400 MG TAB PO SCH (09:00)
--- NOTE | 2023-02-25 09:34 | P.DS ---
Providers Date of admission: 02/24/2023 Expected date of discharge: 02/25/23 Attending physician: Tr Devries Consults: 02/24/23 09:50 Consult Physician Routine Consulting Provider: Tobias Slaughter Consult Reason/Comments: medical management s/p right total knee arthroplasty Do you want consulting provider notified?: Yes Primary care physician: [facility] Hospital Course: Date of admission: 02/24/2023 Date of discharge: 02/25/2023 Admission diagnosis: Right knee osteoarthritis Discharge diagnosis: Same Attending physician: Dr. Devries Surgical procedures: Right total knee arthroplasty Brief history: Patient is a 53-year-old male with a history of progressive primary right knee osteoarthritis. At this point patient has failed conservative treatment measures and has opted to proceed with a elective right total knee arthroplasty. Hospital course: Details of patient's surgery can be found in operative report. Patient tolerated the procedure well and was subsequently transported to orthopedic floor. Patient's orthopeidc and medical care was provided daily. Patient had daily laboratory tests performed for evaluation of overall blood counts. Patient had daily physical therapy to include strengthening range of motion as well as education with walker ambulation. Patient was treated with Xarelto for their postoperative DVT prophylaxis during their inpatient stay. Patient was noted to have a relatively uneventful postoperative course. Patient reported satisfactory pain control with oral pain medications by postoperative day 1. Patient showed satisfactory progress with physical therapy. Patient moved steadily through the program and had no difficulty meeting the goals by postoperative day 1. Given patient's otherwise satisfactory course and having met physical therapy goals, plan is to discharge patient home with health services on postoperative day 1. Discharge condition/disposition: Patient will be discharged home with health services in stable condition. Discharge medications: Instructions are given on resumption of patient's normal daily medications per primary care recommendation, in addition patient will be prescribed Montrose 7.5 mg/325 mg 12 every 6 hours; senna; Eliquis 2.5 mg twice a day 2 weeks Discharge instructions: 1. Wound care and infection precautions, keep incision dry and covered while showering, no lotions, creams, moisturizers. No soaking, tubs, pools, hottubs. Do not scrub over the incision. 2. Weight-bear as tolerated with walker / cane until follow-up. 3. Ice and elevate when necessary. Do not exceed 20 minutes per hour with ice pack. 4. Utilize compression sleeve until seen at first follow up appointment. 5. Visiting nursing care. 6. Home physical therapy including home CPM. 7. Pain meds and anticoagulants per prescription. 8. Pain medication has potential to cause constipation. Increase oral fluid and fiber intake. Contact primary care provider if you have not had a bowel movement within 48 hours after discharge 9. No anti-inflammatory medication until discussed at first post operative visit, this including Motrin, Aleve, Mobic, Diclofenac 10. Follow up in office at 2 weeks postop with Brayden Zelaya PA-C / Garrett Sanders PA-C 11. Follow up with your primary care doctor 7-10 days after discharge. 12. Contact [facility] with any questions, . Assessment: Right knee osteoarthritis Procedures: Right total knee arthroplasty Patient Condition at Discharge: Good Plan - Discharge Summary Discharge Rx Participant: No New Discharge Prescriptions: New Apixaban [Eliquis] 2.5 mg PO BID #60 tab HYDROcodone/APAP 7.5-325MG [Montrose 7.5-325] 1 - 2 tab PO Q6HR PRN #36 tab PRN Reason: Pain Sennosides/Docusate Sodium [Senna Plus 8.6-50 mg Softgel] 1 each PO DAILY #20 capsule No Action Atorvastatin Calcium [Lipitor] 80 mg PO HS Omeprazole 20 mg PO DAILY Empagliflozin [Jardiance] 12.5 mg PO QAM metFORMIN HCL 1,000 mg PO BID lisinopriL [Prinivil] 20 mg PO HS glipiZIDE [Glucotrol] 5 mg PO AC-BID Metoprolol Tartrate [Lopressor] 12.5 mg PO BID Insulin Glargine,Hum.rec.anlog [Lantus Solostar Pen] 10 units SQ HS Magnesium 400 mg PO DAILY Discharge Medication List Atorvastatin Calcium [Lipitor] 80 mg PO HS 05/02/22 [History] Empagliflozin [Jardiance] 12.5 mg PO QAM 05/02/22 [History] Omeprazole 20 mg PO DAILY 05/02/22 [History] lisinopriL [Prinivil] 20 mg PO HS 05/02/22 [History] metFORMIN HCL 1,000 mg PO BID 05/02/22 [History] Insulin Glargine,Hum.rec.anlog [Lantus Solostar Pen] 10 units SQ HS 02/22/23 [History] Magnesium 400 mg PO DAILY 02/22/23 [History] Metoprolol Tartrate [Lopressor] 12.5 mg PO BID 02/22/23 [History] glipiZIDE [Glucotrol] 5 mg PO AC-BID 02/22/23 [History] Apixaban [Eliquis] 2.5 mg PO BID #60 tab 02/25/23 [Rx] HYDROcodone/APAP 7.5-325MG [Montrose 7.5-325] 1 - 2 tab PO Q6HR PRN #36 tab 02/25/23 [Rx] Sennosides/Docusate Sodium [Senna Plus 8.6-50 mg Softgel] 1 each PO DAILY #20 ca psule 02/25/23 [Rx] Follow up Appointment(s)/Referral(s): Garrett Sanders, DORI [PHYSICIAN INVESTIGATOR WELFARE] - 2 Weeks Patient Instructions/Handouts: Knee Replacement (DC) Activity/Diet/Wound Care/Special Instructions: Orthopedic Discharge Instructions: 1. Wound care and infection precautions, keep incision dry and covered while showering, no lotions, creams, moisturizers. No soaking, pools, hot tubs. Do not scrub over incision. 2. Weight-bear as tolerated with walker / cane until follow-up. 3. Ice and elevate when necessary. Do not exceed 20 minutes per hour with ice pack. 4. Utilize compression sleeve until seen at first follow up appointment. 5. Pain meds and anticoagulants per prescription. 6. Pain medication has potential to cause constipation. Increase oral fluid and fiber intake. Contact primary care provider if you have not had a bowel movement within 48 hours after discharge. 7. No anti-inflammatory medication until discussed at first post operative visit, this including Motrin, Aleve, Mobic, Diclofenac. 8. Follow up in office at 2 weeks postop with Brayden Zelaya PA-C / Garrett Sanders PA-C 9. Follow up with your primary care doctor 7-10 days after discharge. 10. Contact [facility] with any questions, . Keep incision clean, dry, intact. While showering, cover fusion tape with Saran wrap. Keep fusion tape on until follow-up appointment in office in 2 weeks. Discharge Disposition: HOME WITH HOME HEALTH SERVICES
--- NOTE | 2023-02-25 09:44 | P.PN ---
Subjective Progress Note Date: 02/25/23 Principal diagnosis: Right knee osteoarthritis Patient was seen at bedside this morning sitting up in bed with dressing over right knee. Patient says she has urinated several times since surgery yesterday. Patient is hoping to work with physical therapy later this morning with the hopes of going home later today. Patient says he does have a walker at home. Patient says the pain is manageable and the medication does help somewhat control the pain. Patient denies any other issues at this time. Patient denies chest pain, fever, shortness breath, nausea, vomiting, change in vision, loss of bowel/bladder control. Objective - Vital Signs Vital signs: Vital Signs Temp 98.3 F 02/25/23 02:18 Pulse 89 02/25/23 02:18 Resp 18 02/25/23 02:18 BP 114/65 02/25/23 02:18 Pulse Ox 98 02/25/23 02:18 FiO2 Intake & Output 02/24/23 02/25/23 02/25/23 18:59 06:59 18:59 Intake Total 2401.5 Output Total 50 1390 Balance 2351.5 -1390 Weight 108.7 kg Intake: IV 1951.5 Intake, IV Titration 450 Amount Lactated Ringers 1,000 ml 400 @ 0 mls/hr IV .[facility] Rx#:[id number] ceFAZolin 2 gm In Sodium 50 Chloride 0.9% 50 ml @ 100 mls/hr IVPB Q8H [facility] Rx#: [id number] Output: Urine 1390 Estimated Blood Loss 50 Other: Voiding Method Urinal - Exam Right knee: Incision is clean, dry, and intact. The exofin fusion tape is in good condition. There is minimal soft tissue swelling and ecchymosis surrounding the medial and lateral aspects of the incision. Calf is soft, no tenderness with palpation. Plantar flexion, dorsiflexion, EHL, FHL are intact. Sensory exam to light touch throughout the extremity is intact, dorsal pedis pulses 2+. - Labs CBC & Chem 7: 02/25/23 07:03 02/25/23 07:03 Labs: Abnormal Lab Results - Last 24 Hours (Table) 02/24/23 02/24/23 02/24/23 Range/Units 14:41 16:43 19:24 Sodium (137-145) mmol/L Creatinine (0.66-1.25) mg/dL Glucose (74-99) mg/dL POC Glucose (mg/dL) 145 H 253 H 229 H (70-110) mg/dL 02/25/23 02/25/23 Range/Units 05:43 07:03 Sodium 135 L (137-145) mmol/L Creatinine 0.64 L (0.66-1.25) mg/dL Glucose 147 H (74-99) mg/dL POC Glucose (mg/dL) 153 H (70-110) mg/dL Assessment and Plan Assessment: 1. Right knee osteoarthritis - Postop day 1 status post right total knee arthroplasty Plan: 1. Right knee osteoarthritis - right total knee arthroplasty performed yesterday, 02/24/2023. Patient stable at bedside this morning. Pending physical therapy evaluation, plan for discharge home today with health services. Patient does have a walker at home. 2. Appreciate medical management 3. Pain management - [place] 4. DVT prophylaxis - Xarelto in hospital. Going home with Eliquis 2.5 mg twice a day 2 weeks 5. GI prophylaxis - senna 6. PT/OT - weightbearing as tolerated with walker 7. Encourage incentive spirometer use 8. Discharge planning - discharge home today with health services Time with Patient: Less than 30
[2023-02-25 11:15] VITALS: BP 109/69; TEMP 97.5
--- NOTE | 2023-02-25 13:48 | P.PN ---
Subjective Progress Note Date: 02/25/23 (delayed charting seen at 1015) Patient is a 53-year-old male with hypertension, diabetes, dyslipidemia presenting for elective right knee total arthroplasty. Patient seen and examined at bedside. He is doing well. Worsening therapy went well. Pain is well controlled. He reports that his blood sugars have been running from 70-120 at home he checks them on a daily basis. A1c reviewed at 7.6 preoperatively. We discussed that he should check his blood sugars daily. We discussed that he should check his blood sugars daily, call [facility] if they run greater than 200 for multiple days in a row. He is in agreement with this plan. I Vital signs reviewed General: nontoxic, no distress, appears at stated age Cardiovascular: S1S2 reg, no murmur, positive posterior tibial pulse bilateral, Lungs: CTA bilateral, no rhonchi, no rales , no accessory muscle use Neuro: CN II-XI grossly intact, no focal neuro deficits Psych: Alert, oriented, appropriate affect Assessment/Plan: 53 yo male s/p right total knee arthroplasty DIabetes type II, insulin requiring - A1c reviewed at 7.6 preoperatively. - We discussed that he should check his blood sugars daily, call [facility] if they run greater than 200 for multiple days in a row. Instructions added to discharge. -He can resume Eccwttnbp45.5 mg, metformin thousand milligrams twice daily, glipizide 5 mg daily, and Lantus 10 units at night. Home medications addressed Hypertension Dyslipidemia -Lipitor 80 mg at night, lisinopril 20 mg at night, Lopressor 12.5 mg twice daily GERD - Resume omeprazole 20 mg oral daily on discharge Patient medically optimized for discharge at the discretion of orthopedic surgery Data Review: Labs reviewed from today includes CBC and basic metabolic profile which are remarkable for glucose of 147 and sodium of 135. Blood sugars did run at 235 and 229 yesterday postoperatively to have improved this morning. Thank you for allowing us to participate in the care of this pleasant patient. Do not hesitate to contact us with questions. Someone can be reached from the [facility] hospitalist group all hours of the day at [phone] or via [employer]. This dictation was prepared using [employer] voice recognition software. Though every attempt is made to correct errors during dictation some may still exist. Objective - Vital Signs Vital signs: Vital Signs Temp 97.5 F L 02/25/23 07:34 Pulse 89 02/25/23 08:11 Resp 18 02/25/23 08:11 BP 109/69 02/25/23 07:34 Pulse Ox 93 L 02/25/23 07:34 FiO2 Intake & Output 02/24/23 02/25/23 02/25/23 18:59 06:59 18:59 Intake Total 2401.5 Output Total 50 1390 Balance 2351.5 -1390 Weight 108.7 kg Intake: IV 1951.5 Intake, IV Titration 450 Amount Lactated Ringers 1,000 ml 400 @ 0 mls/hr IV [facility] Rx#:[id number] ceFAZolin 2 gm In Sodium 50 Chloride 0.9% 50 ml @ 100 mls/hr IVPB Q8H [facility] Rx#: [id number] Output: Urine 1390 Estimated Blood Loss 50 Other: Voiding Method Urinal Urinal - Labs CBC & Chem 7: 02/25/23 07:03 02/25/23 07:03 Labs: Abnormal Lab Results - Last 24 Hours (Table) 02/24/23 02/24/23 02/24/23 Range/Units 14:41 16:43 19:24 Sodium (137-145) mmol/L Creatinine (0.66-1.25) mg/dL Glucose (74-99) mg/dL POC Glucose (mg/dL) 145 H 253 H 229 H (70-110) mg/dL 02/25/23 02/25/23 Range/Units 05:43 07:03 Sodium 135 L (137-145) mmol/L Creatinine 0.64 L (0.66-1.25) mg/dL Glucose 147 H (74-99) mg/dL POC Glucose (mg/dL) 153 H (70-110) mg/dL
== END 2023-02-25 11:22 | disposition home health service (06) ==
LOC: OR 05:39 → 4SSUR 10:14 → OR 02-25 11:22
PROVIDERS: ATTEND Orthopaedic Surgery
DX: M17.11 Unilateral primary osteoarthritis, right knee (principal); E11.9 Type 2 diabetes mellitus without complications; Z47.2 Encounter for removal of internal fixation device; E78.5 Hyperlipidemia, unspecified; K21.9 Gastro-esophageal reflux disease without esophagitis; I10 Essential (primary) hypertension; M19.90 Unspecified osteoarthritis, unspecified site; G43.909 Migraine, unspecified, not intractable, without status migrainosus; M25.562 Pain in left knee; F17.200 Nicotine dependence, unspecified, uncomplicated; G89.18 Other acute postprocedural pain; Z79.84 Long term (current) use of oral hypoglycemic drugs; Z79.899 Other long term (current) drug therapy
CPT/HCPCS: 20680; 64448; 64999; 97161; 80053; 80048; 85025; 85027; 73560; S4990; J2250; J1100; J0690 ×2; J2405; J1170 ×3; J2795

== ENCOUNTER 2024-10-04 06:08 | Day surgery (SDC) | payer OTHER ==
--- NOTE | 2024-10-03 08:28 | P.HPOR ---
History of Present Illness H&P Date: 10/03/24 Chief Complaint: Right knee pain and popping The patient is a 54-year-old male who presents with right knee pain and popping that developed after undergoing a total knee arthroplasty in February 2023. He notes anterior pain when he gets up from a seated position. He notes popping and snapping. He takes Tylenol and Motrin as needed. He ambulates independently. Review of Systems Per HPI Past Medical History Past Medical History: Diabetes Mellitus, GERD/Reflux, Hyperlipidemia, Hypertension, Osteoarthritis (OA), Sleep Apnea/CPAP/BIPAP Additional Past Medical History / Comment(s): uses CPAP History of Any Multi-Drug Resistant Organisms: None Reported Past Surgical History: Joint Replacement Additional Past Surgical History / Comment(s): left knee partial replacement, right knee replaced,. right knee meniscus repair/knee ACL reconstruction Past Anesthesia/Blood Transfusion Reactions: No Reported Reaction Smoking Status: Current every day smoker - Past Family History Mother Family Medical History: No Reported History Medications and Allergies Home Medications Medication Instructions Recorded Confirmed Type Atorvastatin Calcium [Lipitor] 80 mg PO HS 05/02/22 10/02/24 History Omeprazole 20 mg PO DAILY 05/02/22 10/02/24 History lisinopriL [Prinivil] 20 mg PO DAILY 05/02/22 10/02/24 History Insulin Glargine,Hum.rec.anlog 20 units SQ HS 02/22/23 10/02/24 History [Lantus Solostar Pen] Metoprolol Tartrate [Lopressor] 12.5 mg PO BID 02/22/23 10/02/24 History glipiZIDE [Glucotrol] 10 mg PO AC-BID 02/22/23 10/02/24 History Cyclobenzaprine [Flexeril] 10 mg PO HS PRN 10/02/24 10/02/24 History Ibuprofen [Motrin] 600 mg PO Q6HR PRN 10/02/24 10/02/24 History Lidocaine 5% Patch [Lidoderm] 1 patch TOPICAL DAILY PRN 10/02/24 10/02/24 History Semaglutide 0.25 mg SQ MCDONOUGH 10/02/24 10/02/24 History Sildenafil Citrate [Viagra] 100 mg PO DIRECTED PRN 10/02/24 10/02/24 History Allergies Allergy/AdvReac Type Severity Reaction Status Date / Time No Known Allergies Allergy Verified 10/02/24 11:26 Physical Examination - Knee right Effusion grade: grade 1 Tenderness with palpation: anterior Pain: with flexion ROM: extension: -5 degrees ROM: flexion: 110 degrees Crepitus with motion: Yes Strength: extension: 5/5 Strength: flexion: 5/5 Results Patient is a well-developed well-nourished male approximately 6 foot tall, 252 pounds of endomorphic habitus. HEENT exam is nonfocal, neck is supple. On examination of his right knee is stable to varus and valgus stress in extension and flexion. He has moderate patellofemoral crepitus. He has pain with patellofemoral compression. His distal neurovascular exam appears intact in the right lower extremity. 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 At this point he remains quite symptomatic despite conservative measures. After a thorough discussion he opts to proceed with surgery. We will plan to proceed with arthroscopy of the right knee with synovectomy. Risks and benefits were discussed at length in layman's terms. We will likely perform that as an outpatient procedure.
[~2024-10-04 06:08] MED LIST changes: -ACETAMINOPHEN TAB 500 MG TAB PO PRN; +LIDOCAINE 1% (10MG/ML) FOR IV START INTRADERMA PRN; -MELOXICAM 7.5 MG TAB PO PRN; -TRANEXAMIC 1,000 MG/100ML-NACL 1,000 MG in SALINE 1 100ML.BAG IVPB PRN
[2024-10-04] MEDS: LACTATED RINGERS 1,000 ML IV ONE ×3 (06:43→09:01)
[2024-10-04] MEDS ORDERED: fentaNYL (PF) 50 MCG/ML 2 ML AMP IVP PRN (07:00)
[2024-10-04] MEDS ORDERED: MIDAZOLAM 2 MG/2 ML VIAL IV PRN (07:00)
[2024-10-04] MEDS ORDERED: HYDROmorphone 0.5 MG/0.5 ML SYRINGE IVP PRN (07:00)
[2024-10-04] MEDS: LACTATED RINGERS 1,000 ML IV SCH (07:25)
[2024-10-04] MEDS: DEXAMETHASONE SOD PHOSPHATE 4 MG/ML 1 ML VIAL IV ONE (07:25)
[2024-10-04] MEDS: ONDANSETRON 4 MG/2 ML VIAL IVP ONE (07:25)
[2024-10-04] MEDS ORDERED: fentaNYL (PF) 50 MCG/ML 2 ML AMP ONE (07:27)
[2024-10-04] MEDS ORDERED: MIDAZOLAM 2 MG/2 ML VIAL ONE (07:27)
[2024-10-04] MEDS ORDERED: SUCCINYLCHOLINE CHLORIDE 200 MG/10 ML VIAL IV ONE (07:27)
[2024-10-04] MEDS ORDERED: PROPOFOL 10 MG/ML 20 ML VIAL IV ONE (07:27)
[2024-10-04] MEDS ORDERED: KETOROLAC 15 MG/ML 1 ML VIAL ONE (07:27)
[2024-10-04] MEDS ORDERED: ROCURONIUM 10 MG/ML (5 ML VIAL) IV ONE (07:27)
[2024-10-04] MEDS ORDERED: LIDOCAINE 1% INJ 10MG/ML (20 ML MDV) ONE (07:27)
[2024-10-04] MEDS: ceFAZolin 2 GM in DEXTROSE 5% IN WATER 50 ML IVPB PRN (07:32)
[2024-10-04 07:39] LABS: Glucose,Whole Blood 142 mg/dL (70-110)
--- NOTE | 2024-10-04 08:28 | P.OP ---
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 A discussion of the risks and benefits of operative intervention versus continued conservative measures was made with the patient. He opted to proceed with surgery. Operative options were discussed to include arthroscopic synovectomy/plica resection versus open synovectomy. Informed consent was obtained. Operative Findings: As below Description of Procedure: The patient was brought to the operating room, and after induction of general anesthesia examined the right knee. Collaterals were stable in both full extension and 90 degrees of flexion. There is moderate patellofemoral crepitus and popping.. The right lower extremity was prepped and draped in a normal fashion. A superior lateral portal was made through a 3 mm skin incision superior and lateral to the patella. This was used for outflow. A lateral portal was made through a 5 mm vertical skin incision lateral to the patella tendon above the joint line. Diagnostic arthroscopy was performed. On inspection of the medial compartment, there was some impinging synovial tissue debrided back with a motorized shaver. The articular surface appeared intact. On inspection of the notch, the tibial post was intact without significant wear. There was synovial tissue debrided with a motorized shaver. On inspection of the lateral compartment, again synovial tissue was debrided with a motorized shaver. On inspection of the patellofemoral articulation, there was significant scar tissue formation and synovitis along with the medial patellofemoral plica. The synovium was debrided with a motorized shaver and the plica was resected. The patella appeared to track normally throughout range of motion. The gutters were clear debris. The knee was then thoroughly irrigated. The portals were closed with simple 3-0 nylon sutures. A sterile dressing was applied in addition to a compression stocking. The patient was awoken from general anesthesia and transferred to recovery room in good condition. Blood loss was estimated at 10 mL. No complications were incurred.
[2024-10-04 08:35] VITALS: TEMP 97.2
[2024-10-04 08:40] LABS: Glucose,Whole Blood 150 mg/dL (70-110)
[2024-10-04 09:35] VITALS: RESP 14
[2024-10-04 09:53] VITALS: BP 124/79; PULSE 85
== END 2024-10-04 10:40 | disposition home or self-care (01) ==
LOC: OR 06:08
PROVIDERS: ATTEND Orthopaedic Surgery
DX: T84.89XA Other specified complication of internal orthopedic prosthetic devices, implants and grafts, initial encounter (principal); M25.861 Other specified joint disorders, right knee; M67.51 Plica syndrome, right knee; I10 Essential (primary) hypertension; E11.9 Type 2 diabetes mellitus without complications; E78.5 Hyperlipidemia, unspecified; K21.9 Gastro-esophageal reflux disease without esophagitis; G47.30 Sleep apnea, unspecified; F17.200 Nicotine dependence, unspecified, uncomplicated; Z79.4 Long term (current) use of insulin; Z79.84 Long term (current) use of oral hypoglycemic drugs; Z79.85 Long-term (current) use of injectable non-insulin antidiabetic drugs; Z79.899 Other long term (current) drug therapy
CPT/HCPCS: 29876; J2250; J0330; J1100; J0690; J2405; J2003; J3010; J1885; J2704